=== PATIENT | male | born 1950 | race Caucasian/White ===

== ENCOUNTER 2020-09-02 20:54 | Emergency (ER) | payer OTHER ==
[~2020-09-02] VITALS: Ht 172.7 cm; Wt 83.4 kg
--- NOTE | ~2020-09-02 | EMS ---
[address] [address] EMS Patient Care Report Name: DONATO HENRY Room #: REG [facility]#: [id number] Admission: 09/02/20 Attend Phys: Discharge: Date of : 50 Report #: [id number] THIS REPORT FOR: //name// Report Transmitted: 09/02/2020 20:26 EMS Care Summary [facility] Incident [id number] @ 09/02/2020 20:26 Incident Location [address] [place] [address] Patient DONATO HENRY Male, 70 Years 1950 Patient Address [address] [place] [address] Patient History Dementia,Hypertension (HTN),Seizures,Stroke/CVA,Alcohol Abuse,Enlarged prostate, Patient Allergies Codeine,Tetanus Toxoid Vaccine, Patient Medications Hydrocodone, Potassium, Zyprexa, Phenytoin, Keppra, Doxazosin, Trazodone, Amlodipine, Gabapentin, Metoprolol, Chief Complaint SEIZURE, SELF RESOLVED PRIOR TO ARRIVAL Disposition Transported No Lights/[place] Dispatch Reason Breathing Problem Transported To [facility] Narrative [id number] IS DISPATCHED AND RESPONDS NOTED. UPON ARRIVAL AT SCENE 134 MAKES CONTACT WITH [facility] AND STAFF WHO [address] [address] EMS Patient Care Report Name: DONATO HENRY Room #: REG [facility]#: [id number] Admission: 09/02/20 Attend Phys: Discharge: Date of : 50 Report #: [id number] STATES THAT PT HAD A TYPICAL SEIZURE THAT LASTED LESS THAN ONE MINUTE AND WHEN FAMILY WAS CONTACTED THEY REQUESTED PT TO BE SENT TO ER FOR EVALUATION. STAFF STATES THAT PT IS AT BASELINE STATUS, INCLUDING MENTAL STATUS AT THIS TIME. UPON PT CONTACT PT IS FOUND SUPINE IN BED, CONSCIOUS, TRACKING, SHOWING NO SIGNS OF DISTRESS OR OBVIOUS TRAUMA. PT DENIES ALL COMPLAINTS AT THIS TIME. STAFF REQUESTS PT TO GO TO CLOSEST FACILITY WHICH IS [facility]. PT MOVED TO COT, SECURED WITH ALL STRAPS, MOVED TO AMBULANCE WITHOUT INCIDENT. PT MONITORED ENROUTE. RADIO REPORT CALLED ENROUTE. UPON ARRIVAL AT [facility] PT MOVED TO ER ROOM 9, PLACED IN BED WITH RAILS UP. PT CARE TRANSFERRED TO [employer] VICE PRESIDENT WITH VERBAL REPORT. Initial Vitals @20:49P: 68,R: 18,BP: 127/82,Pain: 0/10,GCS: 14,SpO2: 98,Revised Trauma: 12, @20:46P: 67,R: 20,BP: 125/60,Pain: 0/10,GCS: 14,Temp: 97.8F,SpO2: 99,Revised Trauma: 12, Assessments @20:36MENTAL:Confused,Person Oriented,SKIN:HEENT:Eyes: Left Pupil: 4-mm,Eyes: Right Pupil: 4-mm,LUNG SOUNDS:ABDOMEN:PELVIS//GI:EXTREMITIES:Capillary Refill: Right Upper: < 2 Sec,Capillary Refill: Left Upper: < 2 Sec,PULSE:Radial: 2+ Normal,NEURO:Tremors, Impression Seizures without status epilepticus Procedures @20:36ALS AssessmentResponse: UnchangedSucceeded Timeline 20:25,Call Received 20:25,Psap Call 20:26,Dispatched 20:27,En Route 20:33,On Scene 20:36,At Patient 20:36,ALS Assessment,Response: UnchangedSucceeded, 20:45,Depart Scene 20:46,BP: 125/60 M,PULSE: 67,RR: 20 R,SPO2: 99 Ox,ETCO2: ,BG: ,PAIN: 0,GCS: 14, 20:49,BP: 127/82 M,PULSE: 68,RR: 18 R,SPO2: 98 Ox,ETCO2: ,BG: ,PAIN: 0,GCS: 14, 20:50,At Destination 21:05,Call Closed [facility] [address] [place] [address] EMS Patient Care Report Name: DONATO HENRY Room #: REG [facility]#: [id number] Admission: 09/02/20 Attend Phys: Discharge: Date of : 50 Report #: [id number] Disclaimer [email or web address] Copyright 2020 [email or web address] This EMS Care Summary contains data elements from the applicable legal record (which may be displayed differently). It is designed to provide pertinent information for the following purposes: continuity of care, clinical quality, and state data reporting. The complete legal record is available to ED staff and administrators of the receiving hospital in [facility]s Patient Tracker. All data is provided "as is."
[~2020-09-02 20:54] MED LIST: AMBIEN 5 MG TABL5 M1 PO; CALCIUM 600 +1 EAC1 PO; CO Q-10100 MG PO; FLAX SEED OIL1 EACH PO; GLUCOSAMINE 1,1 EACH PO; KEPPRA 500 MG500 M1 PO; LISINOPRIL20 MG PO; MAGOX 400400 MG PO; NORVASC5 MG PO; OXYCODONE HCL 55 MG PO; PRAVACHOL40 MG PO; PROBIOTIC1 EAC1 PO; TOPROL XL100 MG PO; TURMERIC500 M1 PO; VITAMIN D3400 UNIT PO; VITAMINC500 PO; XARELTO10 MG PO
[2020-09-02 20:55] VITALS: BP 139/76
[2020-09-03] MEDS ORDERED: NORVASC10 MG PO (02:43)
[2020-09-03] MEDS ORDERED: DOXAZOSIN MESYLA2 MG PO (02:44)
[2020-09-03] MEDS ORDERED: COLESTIPOL HCL1 G1 PO (02:44)
[2020-09-03] MEDS ORDERED: NEURONTIN300 MG PO (02:45)
[2020-09-03] MEDS ORDERED: HYDROCODON-ACE1 EAC7 PO ×2 (02:57→02:58)
[2020-09-03] MEDS ORDERED: NEURONTIN100 MG PO (02:57)
[2020-09-03] MEDS ORDERED: MULTI VITAMIN1 EACH PO (02:59)
[2020-09-03] MEDS ORDERED: OLANZAPINE5 M1 PO (03:00)
[2020-09-03] MEDS ORDERED: OLANZAPINE ODT5 MG PO (03:01)
[2020-09-03] MEDS ORDERED: OLANZAPINE10 M1 PO (03:01)
[2020-09-03] MEDS ORDERED: PHENYTEK200 MG PO (03:02)
[2020-09-03] MEDS ORDERED: PHENYTOIN SODI300 MG PO (03:10)
[2020-09-03] MEDS ORDERED: POTASSIUM20 PO (03:11)
[2020-09-03] MEDS ORDERED: REGULOID0.4 GM PO (03:13)
[2020-09-03] MEDS ORDERED: TRAMADOL 50 MG50 MG PO (03:14)
[2020-09-03] MEDS ORDERED: VITAMIN B-1100 M2 PO (03:15)
[2020-09-03] MEDS ORDERED: VIMPAT200 MG PO (03:15)
== END 2020-09-02 22:00 ==
LOC: ER 20:54
DX: R56.9 Unspecified convulsions (principal); I10 Essential (primary) hypertension; E78.00 Pure hypercholesterolemia, unspecified; Z90.89 Acquired absence of other organs; Z88.1 Allergy status to other antibiotic agents; Z88.5 Allergy status to narcotic agent; Z88.7 Allergy status to serum and vaccine